=== PATIENT | female | born 1960 | race Caucasian/White ===

== ENCOUNTER 2023-06-19 06:48 | Inpatient (IN) | payer MEDICARE, OTHER ==
[~2023-06-19] VITALS: Ht 154.9 cm; Wt 104.0 kg
[2023-06-19] MEDS ORDERED: METF-1211 PO (06:51)
[2023-06-19] MEDS ORDERED: METO-416 PO (06:54)
[2023-06-19] MEDS ORDERED: CELE-125 PO (06:54)
[2023-06-19] MEDS ORDERED: CHOL200059 PO (06:54)
[2023-06-19] MEDS ORDERED: ASPI-1444 PO (06:54)
[2023-06-19] MEDS ORDERED: INSLAN SQ (06:54)
[2023-06-19] MEDS ORDERED: AMLO10TA55 PO (06:54)
[2023-06-19] MEDS ORDERED: BENA40TA92 PO (06:54)
[2023-06-19] MEDS ORDERED: ATOR20TA65 PO (06:54)
[2023-06-19] MEDS ORDERED: OMEP20 PO (06:54)
[2023-06-19] MEDS ORDERED: DULA3PEN SQ (06:54)
[2023-06-19] MEDS ORDERED: MAG HYDROX/ALUMINUM HYD/SIMETH 30 ML SUSPENSION UDCUP PO ONE (07:00)
[2023-06-19] MEDS ORDERED: FAMOTIDINE 20 MG/2 ML VIAL IVP ONE (07:00)
[2023-06-19 07:22] LABS: BASOPHILS % (AUTO) 0.5 % (0.0-2.0); EOSINOPHILS % (AUTO) 1.9 % (1.0-6.0); HEMATOCRIT 35.7 % (36-46); HEMOGLOBIN 11.6 g/dL (12.0-16.0); LYMPHOCYTES # (AUTO) 1.6 K/uL (1.0-4.8); LYMPHOCYTES % (AUTO) 20.6 % (22.0-44.0); MEAN CORPUSCULAR HEMOGLOBIN 23.1 pg (26.0-34.0); MEAN CORPUSCULAR HGB CONC 32.4 G/dL (31.0-37.0); MEAN CORPUSCULAR VOLUME 72 fL (80-100); MONOCYTES # (AUTO) 0.5 K/uL (0.1-1.0); MONOCYTES % (AUTO) 6.7 % (2.0-9.0); NEUTROPHILS # (AUTO) 5.5 K/uL (1.8-7.7); NEUTROPHILS % (AUTO) 70.3 % (40.0-70.0); PLATELET COUNT (AUTO) 322 K/uL (150-450); RED CELL DISTRIBUTION WIDTH 18.4 % (11.5-14.5); WHITE BLOOD COUNT (AUTO) 7.9 K/uL (4.5-11.0)
[2023-06-19 07:35] LABS: ANION GAP 9 mmol/L (8-16); CALCIUM, TOTAL 9.3 mg/dL (8.8-10.5); CARBON DIOXIDE 29 mmol/L (22-29); CHLORIDE 103 mmol/L (98-107); CREATININE 0.64 mg/dL (0.60-1.30); GLOMERULAR FILTR. RATE CALC > 60 mL/min (>60); GLUCOSE,RANDOM 181 mg/dL (70-110); POTASSIUM 3.6 mmol/L (3.5-5.1); PROTHROMBIN TIME 10.3 SEC (9.4-11.6); SODIUM SERUM 141 mmol/L (136-145); UREA NITROGEN, BLOOD 22 mg/dL (7-18)
[2023-06-19 07:39] LABS: TROPONIN I-HIGH SENSITIVITY 5 ng/L (<51)
[2023-06-19 07:44] LABS: B-TYPE NATRIURETIC PEPTIDE 16 pg/mL (0-100)
[2023-06-19 07:58] LABS: ALANINE AMINOTRANSFERASE 32 U/L (12-78); ALBUMIN 3.5 g/dL (3.4-5.0); ALKALINE PHOSPHATASE 69 U/L (46-116); ASPARTATE AMINOTRANSFERASE 15 U/L (15-37); BILIRUBIN,TOTAL 0.2 mg/dL (0.1-1.0); CREATINE KINASE, TOTAL ONLY 88 U/L (26-192); PHOSPHORUS 4.5 mg/dL (2.5-4.9); TOTAL PROTEIN, SERUM 7.5 g/dL (6.4-8.2)
[2023-06-19] MEDS ORDERED: MAGNESIUM SULFATE 1 GM in DEXTROSE 5%-WATER 50 ML IV ONE (08:15)
[2023-06-19] MEDS ORDERED: ACETAMINOPHEN 325 MG TABLET PO PRN (08:45)
[2023-06-19] MEDS ORDERED: ONDANSETRON HCL 4 MG/2 ML VIAL IVP PRN (08:45)
[2023-06-19] MEDS ORDERED: MAGNESIUM HYDROXIDE SUSPENSION 30 ML UDCUP PO PRN (08:45)
[2023-06-19] MEDS ORDERED: DEXTROSE 50%-WATER 25 GM/50 ML SYRINGE IVP PRN (08:45)
[2023-06-19] MEDS ORDERED: FAMOTIDINE 20 MG TABLET PO SCH (09:00)
[2023-06-19 09:20] LABS: COVID AG,FIA SOURCE NASAL SWAB
[2023-06-19 09:28] LABS: TROPONIN I-HIGH SENSITIVITY 6 ng/L (<51)
[2023-06-19 09:56] LABS: SARS-COV2 (COVID) ANTIGEN,FIA Negative (Negative)
[2023-06-19] MEDS: ASPIRIN 81 MG CHEWABLE TABLET PO SCH (10:49)
[2023-06-19] MEDS: ROSUVASTATIN CALCIUM 10 MG TABLET PO SCH (10:49)
[2023-06-19] MEDS: METOPROLOL TARTRATE 50 MG TABLET PO SCH ×2 (10:49→20:15)
[2023-06-19 11:13] VITALS: BP 127/89; PULSE 109; RESP 18; TEMP 98
[2023-06-19] MEDS: INSULIN LISPRO 100 UNITS/ML SQ PRN ×3 (12:41→20:21)
[2023-06-19 12:59] VITALS: BP 124/69; PULSE 89; RESP 14; TEMP 98.1
[2023-06-19 13:15] LABS: CHOL/HDL RATIO 4.3 (3.9-5.7); CHOLESTEROL 172 mg/dL (131-200); HDL CHOLESTEROL 40 mg/dL (40-60); LDL CHOL (CALC.) 101 mg/dL (0-130); TRIGLYCERIDES 153 mg/dL (15-150)
[2023-06-19 13:54] LABS: TROPONIN I-HIGH SENSITIVITY 5 ng/L (<51)
[2023-06-19] MEDS: HEPARIN SODIUM,PORCINE 5,000 UNITS/ML VIAL SQ SCH (16:00)
[2023-06-19 17:22] VITALS: BP 130/90; PULSE 100; RESP 18; TEMP 98
[2023-06-19 18:41] LABS: GLUCOMETER DEV NAME(LOC) 5N.1C; GLUCOSE,POINT OF CARE 196 MG/DL (70-110)
[2023-06-19 20:00] VITALS: BP 131/70; PULSE 72; RESP 18; TEMP 98.3
[2023-06-19 20:21] LABS: GLUCOMETER DEV NAME(LOC) 5N.2C; GLUCOSE,POINT OF CARE 153 MG/DL (70-110)
[2023-06-19 22:15] LABS: GLUCOMETER DEV NAME(LOC) 5N.1C; GLUCOSE,POINT OF CARE 193 MG/DL (70-110)
[2023-06-20] VITALS: BP 135/70; PULSE 77; RESP 18; TEMP 98.3
[2023-06-20 04:00] VITALS: BP 142/76; PULSE 78; RESP 18; TEMP 98.3
[2023-06-20] MEDS: INSULIN LISPRO 100 UNITS/ML SQ PRN ×2 (06:13→11:41)
[2023-06-20 06:41] LABS: GLUCOMETER DEV NAME(LOC) 5N.1C; GLUCOSE,POINT OF CARE 182 MG/DL (70-110)
[2023-06-20] MEDS: HEPARIN SODIUM,PORCINE 5,000 UNITS/ML VIAL SQ SCH ×2 (08:00)
[2023-06-20 08:31] VITALS: BP 132/74; PULSE 76; RESP 19; TEMP 98.2
[2023-06-20] MEDS ORDERED: FAMOTIDINE 20 MG TABLET PO SCH (09:00)
[2023-06-20] MEDS: ASPIRIN 81 MG CHEWABLE TABLET PO SCH (09:08)
[2023-06-20] MEDS: METOPROLOL TARTRATE 50 MG TABLET PO SCH (09:09)
[2023-06-20] MEDS: ROSUVASTATIN CALCIUM 10 MG TABLET PO SCH (09:13)
[2023-06-20 11:04] VITALS: BP 127/76; PULSE 73; RESP 20; TEMP 98
[2023-06-20] MEDS ORDERED: ESOM20CA31 PO (12:10)
[2023-06-20 17:21] LABS: GLUCOMETER DEV NAME(LOC) 5N.1C; GLUCOSE,POINT OF CARE 144 MG/DL (70-110)
== END 2023-06-20 15:45 | disposition home or self-care (01) | DRG 392 ==
LOC: EMS 06:49 → 5N 09:50
PROVIDERS: ADMIT Internal Medicine; ATTEND Internal Medicine
DX: K21.9 Gastro-esophageal reflux disease without esophagitis (principal); Z68.41 Body mass index [BMI] 40.0-44.9, adult; E66.01 Morbid (severe) obesity due to excess calories; E11.9 Type 2 diabetes mellitus without complications; I10 Essential (primary) hypertension; Z96.649 Presence of unspecified artificial hip joint; E78.00 Pure hypercholesterolemia, unspecified; Z79.899 Other long term (current) drug therapy; Z79.82 Long term (current) use of aspirin; Z90.49 Acquired absence of other specified parts of digestive tract; Z83.3 Family history of diabetes mellitus
CPT/HCPCS: 71045; 80053; 80061; 82550; 82962; 83735; 83880; 84100; 84484; 85025; 85610; 85730; 93005; 93306; 99285; J1644; J3475; J3490; J7060; 36415-L1; 36415-TC